=== PATIENT | female | born 1975 | race Caucasian/White ===

== ENCOUNTER 2018-02-19 05:40 | Inpatient (IN) | payer OTHER, MEDICAID ==
[2018-02-19] MEDS ORDERED: LIDOCAINE 2% (SDV) 5 ML INJ (06:22)
[2018-02-19] MEDS ORDERED: GLYCOPYRROLATE 0.4 MG INJ (06:22)
[2018-02-19] MEDS ORDERED: MIDAZOLAM 1 MG/ML 2 ML INJ (06:22)
[2018-02-19] MEDS ORDERED: FENTAnyl 50 MCG/ML VIAL (06:22)
[2018-02-19] MEDS ORDERED: PROPOFOL 20 ML (06:22)
[2018-02-19] MEDS ORDERED: ROCURONIUM 50 MG INJ (06:22)
[2018-02-19] MEDS ORDERED: NEOSTIGMINE 3 MG/3 ML SYRINGE (06:22)
[2018-02-19] MEDS ORDERED: DEXAMETHASONE 4 MG/ML 1 ML INJ (06:23)
[2018-02-19] MEDS ORDERED: ONDANSETRON 4 MG INJ (06:23)
[2018-02-19] MEDS ORDERED: morphine SULFATE/PF (10 MG/10 ML) INJ (06:24)
[2018-02-19] MEDS ORDERED: SUCCINYLCHOLINE CHLORIDE 100 MG/5 ML SYG IV (06:28)
[2018-02-19] MEDS ORDERED: morphine (1 MG/ML) 10ML SYRINGE IV ×3 (06:30)
[2018-02-19] MEDS ORDERED: DIPHENHYDRAMINE 50 MG INJ IV (06:30)
[2018-02-19] MEDS ORDERED: FENTAnyl 50 MCG/ML VIAL IV ×2 (06:30)
[2018-02-19] MEDS ORDERED: ONDANSETRON 4 MG INJ IV ×2 (06:30→10:30)
[2018-02-19] MEDS ORDERED: EPHEDrine SULFATE 50 MG/5 ML SYG IV (06:30)
[2018-02-19] MEDS ORDERED: ATROPINE 1 MG/10 ML SYRINGE IV (06:30)
[2018-02-19] MEDS ORDERED: HYDROmorphONE (0.2 MG/ML) 10ML SYG IV ×3 (06:30)
[2018-02-19] MEDS ORDERED: MIDAZOLAM 1 MG/ML 2 ML INJ IV (06:30)
[2018-02-19] MEDS ORDERED: MEPERIDINE 25 MG INJ IV (06:30)
[2018-02-19] MEDS ORDERED: hydrALAzine 20 MG INJ IV (06:30)
[2018-02-19] MEDS ORDERED: OXYCODONE/ACETAMINOPHEN (5/325) TAB PO ×3 (06:30→10:30)
[2018-02-19] MEDS ORDERED: LABETALOL HCL 20MG INJ IV (06:30)
[2018-02-19 06:34] LABS: ADD MAN DIFF? NO
[2018-02-19] MEDS ORDERED: BUPIVACAINE 0.75%/DEXT (SPINAL) 2 ML INJ (06:45)
[2018-02-19 06:49] LABS: WHITE BLOOD COUNT 6.5 10^3/ul (4.8-10.8)
[2018-02-19 06:49] LABS: BASOPHIL # 0.1 10^3/ul (0.0-0.1); BASOPHILS % 0.9 % (0.0-2.0); EOSINOPHILS # 0.2 10^3/ul (0.0-0.5); EOSINOPHILS % 3.1 % (0.0-7.0); HEMATOCRIT 39.1 % (37.0-47.0); HEMOGLOBIN 12.4 g/dl (12.0-16.0); LYMPHOCYTES # 1.4 10^3/ul (0.8-2.9); LYMPHOCYTES % 20.9 % (15.0-51.0); MEAN CORPUSCULAR HEMOGLOBIN 23.7 pg (29.0-33.0); MEAN CORPUSCULAR HGB CONC 31.7 g/dl (32.0-37.0); MEAN CORPUSCULAR VOLUME 74.8 fl (82.0-101.0); MEAN PLATELET VOLUME 11.8 fl (7.4-10.4); MONOCYTE # 0.5 10^3/ul (0.3-0.9); MONOCYTES % 6.9 % (0.0-11.0); NEUTROPHIL # 4.4 10^3/ul (1.6-7.5); NEUTROPHILS % 67.9 % (39.0-77.0); PLATELET COUNT 299 10^3/UL (140-415); RED BLOOD COUNT 5.23 10^6/ul (4.20-5.40); RED CELL DISTRIBUTION WIDTH 17.2 % (11.5-14.5)
[2018-02-19] MEDS ORDERED: VASOPRESSIN 20 UNITS INJ (06:53)
[2018-02-19 07:02] LABS: ALANINE AMINOTRANSFERASE 28 IU/L (13-69); ALBUMIN 4.3 g/dl (3.3-4.9); ALBUMIN/GLOBULIN RATIO 1.16; ALKALINE PHOSPHATASE 81 IU/L (42-121); ANION GAP 17 (8-16); ASPARTATE AMINO TRANSFERASE 22 IU/L (15-46); BILIRUBIN,INDIRECT 0.2 mg/dl (0-1.1); BILIRUBIN,TOTAL 0.2 mg/dl (0.2-1.3); CARBON DIOXIDE 21 mmol/L (21-31); CHLORIDE 109 mmol/L (97-110); GLUCOSE 95 mg/dl (70-220)
[2018-02-19 07:04] LABS: INR 0.89; PROTIME 12.1 Sec (11.9-14.9); PT RATIO 0.9
[2018-02-19 07:05] LABS: PARTIAL THROMBOPLASTIN TIME 28.2 Sec (25.0-35.0)
[2018-02-19 07:10] LABS: BLOOD UREA NITROGEN 13 mg/dl (7-20); CALCIUM 9.2 mg/dl (8.4-10.2); CREATININE 0.49 mg/dl (0.44-1.00); SODIUM 143 mmol/L (135-144)
[2018-02-19] MEDS ORDERED: VANCOMYCIN 1 GM (PMX) 250 ML (07:12)
[2018-02-19] MEDS ORDERED: LABETALOL HCL 20MG INJ (08:06)
[2018-02-19] MEDS ORDERED: [UNRECOGNIZED DRUG - SUPPLY] (09:10)
[2018-02-19] MEDS: [UNRECOGNIZED DRUG - SUPPLY] TOP (09:24)
[2018-02-19] MEDS ORDERED: ACETAMINOPHEN 325 MG TAB PO (10:30)
[2018-02-19] MEDS ORDERED: IBUPROFEN 600 MG TAB PO (11:30)
[2018-02-19] MEDS: LACTATED RINGER'S 1,000 ML IV ×2 (11:49→21:34)
[2018-02-19] MEDS: LACTATED RINGER'S 1,000 ML IV* (12:00)
[2018-02-20 05:54] LABS: ADD MAN DIFF? NO
[2018-02-20 05:58] LABS: WHITE BLOOD COUNT 10.4 10^3/ul (4.8-10.8)
[2018-02-20 05:58] LABS: BASOPHILS % 0.1 % (0.0-2.0); EOSINOPHILS % 0.1 % (0.0-7.0); HEMATOCRIT 28.5 % (37.0-47.0); LYMPHOCYTES # 1.2 10^3/ul (0.8-2.9); LYMPHOCYTES % 11.2 % (15.0-51.0); MEAN CORPUSCULAR HEMOGLOBIN 24.5 pg (29.0-33.0); MEAN CORPUSCULAR HGB CONC 31.6 g/dl (32.0-37.0); MEAN CORPUSCULAR VOLUME 77.7 fl (82.0-101.0); MEAN PLATELET VOLUME 11.7 fl (7.4-10.4); MONOCYTE # 1.3 10^3/ul (0.3-0.9); MONOCYTES % 12.5 % (0.0-11.0); NEUTROPHIL # 7.9 10^3/ul (1.6-7.5); NEUTROPHILS % 75.7 % (39.0-77.0); PLATELET COUNT 257 10^3/UL (140-415); RED BLOOD COUNT 3.67 10^6/ul (4.20-5.40)
[2018-02-20 06:25] LABS: ANION GAP 11 (8-16); BLOOD UREA NITROGEN 11 mg/dl (7-20); CALCIUM 8.6 mg/dl (8.4-10.2); CARBON DIOXIDE 28 mmol/L (21-31); CHLORIDE 104 mmol/L (97-110); CREATININE 0.55 mg/dl (0.44-1.00); GLUCOSE 100 mg/dl (70-220); POTASSIUM 4.1 mmol/L (3.5-5.1); SODIUM 139 mmol/L (135-144)
[2018-02-20] MEDS: LACTATED RINGER'S 1,000 ML IV (07:04)
[2018-02-20] MEDS: VANCOMYCIN 1 GM (PMX) 250 ML IVPB (07:52)
[2018-02-20] MEDS: FAMOTIDINE 20 MG INJ IV ×2 (08:30→20:18)
[2018-02-20] MEDS: ENOXAPARIN 40 MG/0.4 ML SYG SC (08:32)
[2018-02-20] MEDS: OXYCODONE/ACETAMINOPHEN (5/325) TAB PO ×2 (11:37→19:09)
[2018-02-20] MEDS: MAGNESIUM HYDROXIDE 30ML CUP PO (13:11)
[2018-02-20] MEDS: KETOROLAC 30 MG INJ IV (20:26)
[2018-02-21] MEDS: OXYCODONE/ACETAMINOPHEN (5/325) TAB PO (08:30)
[2018-02-21] MEDS: FAMOTIDINE 20 MG INJ IV (08:31)
[2018-02-21] MEDS: ENOXAPARIN 40 MG/0.4 ML SYG SC (08:34)
== END 2018-02-21 14:15 | disposition home or self-care (01) | DRG 743 ==
LOC: REC 05:40 → MS2 11:05
PROC: 0UT90ZZ Resection of Uterus, Open Approach (ICD-10-PCS; principal; 2018-02-19 07:30)
PROC: 0UT70ZZ Resection of Bilateral Fallopian Tubes, Open Approach (ICD-10-PCS; 2018-02-19 07:30)
DX: D25.9 Leiomyoma of uterus, unspecified (principal); N80.0 Endometriosis of uterus; N93.9 Abnormal uterine and vaginal bleeding, unspecified
CPT/HCPCS: 80048; 80053; 85025; 85610; 85730; 86850; 86900; 86901; 87086; 88305